=== PATIENT | female | born 1975 | race Caucasian/White ===

== ENCOUNTER 2017-10-23 14:00 | Emergency (ER) | payer SELFPAY ==
[~2017-10-23] VITALS: Ht 170.2 cm; Wt 100.0 kg
[2017-10-23 14:26] VITALS: Ht 170.2 cm; Wt 100.0 kg
[2017-10-23] MEDS ORDERED: TOPAMAX25 MG PO (14:27)
[2017-10-23] MEDS ORDERED: ADIPEX-P37.5 M1 PO (14:27)
[2017-10-23] MEDS ORDERED: HYDROCODONE-APA1 TAB PO (17:33)
[2017-10-23] MEDS ORDERED: ROBAXIN-750750 MG PO (17:33)
[2017-10-23 18:23] VITALS: BP 138/86
== END 2017-10-23 18:23 | disposition home or self-care (01) ==
LOC: D.ER 14:00
DX: S46.001A Unspecified injury of muscle(s) and tendon(s) of the rotator cuff of right shoulder, initial encounter (principal); W11.XXXA Fall on and from ladder, initial encounter; Y93.89 Activity, other specified; Y92.019 Unspecified place in single-family (private) house as the place of occurrence of the external cause